=== PATIENT | female | born 1985 | race Caucasian/White ===

== ENCOUNTER 2018-10-12 08:33 | Emergency (ER) | payer BC, MEDICAID ==
[2018-10-12] MEDS ORDERED: cloNIDine 0.1 MG Tab PO SCH (08:45)
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
[2018-10-12 10:13] LABS: CHLORIDE,CL 104 mEq/L (98-106); SODIUM,NA 139 mEq/L (136-145)
[2018-10-12 10:35] VITALS: BP 135/80
== END 2018-10-12 11:12 | disposition home or self-care (01) ==
LOC: CC.ED 08:33
DX: I16.0 Hypertensive urgency (principal); I10 Essential (primary) hypertension; F17.210 Nicotine dependence, cigarettes, uncomplicated
CPT/HCPCS: 36415; 80053; 80305-QW; 84484; 85025; 85379; 86140; 93005; 99284-25; A9270-GY

== ENCOUNTER 2018-12-28 12:25 | Emergency (ER) | payer MEDICAID ==
[2018-12-28 12:40] VITALS: BP 136/84
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
== END 2018-12-28 13:25 | disposition home or self-care (01) ==
LOC: CC.ED 12:25
DX: G40.909 Epilepsy, unspecified, not intractable, without status epilepticus (principal); Z91.14 Patient's other noncompliance with medication regimen; F41.9 Anxiety disorder, unspecified; I10 Essential (primary) hypertension; F17.210 Nicotine dependence, cigarettes, uncomplicated; Z88.5 Allergy status to narcotic agent; Z79.899 Other long term (current) drug therapy; Z87.442 Personal history of urinary calculi
CPT/HCPCS: 99283

== ENCOUNTER 2019-11-21 10:49 | Emergency (ER) | payer MEDICAID ==
[2019-11-21 10:53] VITALS: BP 131/89; PULSE 99
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
== END 2019-11-21 11:37 | disposition left against medical advice (07) ==
LOC: CC.ED 10:49
DX: G40.909 Epilepsy, unspecified, not intractable, without status epilepticus (principal); F17.210 Nicotine dependence, cigarettes, uncomplicated; I10 Essential (primary) hypertension; Z91.14 Patient's other noncompliance with medication regimen; Z79.899 Other long term (current) drug therapy
CPT/HCPCS: 99284

== ENCOUNTER 2019-11-24 10:37 | Emergency (ER) | payer MEDICAID ==
[2019-11-24 11:09] VITALS: BP 131/94; PULSE 98
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
[2019-11-24 11:47] LABS: CHLORIDE,CL 108 mEq/L (98-106); SODIUM,NA 143 mEq/L (136-145)
== END 2019-11-24 13:10 | disposition home or self-care (01) ==
LOC: CC.ED 10:37
DX: R56.9 Unspecified convulsions (principal); I10 Essential (primary) hypertension; G43.909 Migraine, unspecified, not intractable, without status migrainosus; F41.9 Anxiety disorder, unspecified; F17.210 Nicotine dependence, cigarettes, uncomplicated; Z79.899 Other long term (current) drug therapy
CPT/HCPCS: 36415; 70450; 80053; 80305-QW; 81001; 81025; 85025; 99284-25

== ENCOUNTER 2020-01-02 08:23 | Emergency (ER) | payer MEDICAID ==
[2020-01-02 08:36] VITALS: BP 162/98; PULSE 135
== END 2020-01-02 08:41 | disposition left against medical advice (07) ==
LOC: CC.ED 08:23
DX: Z53.21 Procedure and treatment not carried out due to patient leaving prior to being seen by health care provider (principal)

== ENCOUNTER 2021-01-12 23:00 | Emergency (ER) | payer MEDICAID ==
[2021-01-12 23:10] VITALS: BP 153/78; PULSE 96
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
== END 2021-01-13 | disposition home or self-care (01) ==
LOC: CC.ED 23:00
DX: S61.412A Laceration without foreign body of left hand, initial encounter (principal); I10 Essential (primary) hypertension; Z79.899 Other long term (current) drug therapy; Z72.0 Tobacco use; W26.0XXA Contact with knife, initial encounter; Y92.009 Unspecified place in unspecified non-institutional (private) residence as the place of occurrence of the external cause
CPT/HCPCS: 12001; 99282-25

== ENCOUNTER 2021-06-06 11:51 | Emergency (ER) | payer BC, MEDICAID ==
[2021-06-06 13:09] VITALS: BP 141/105; PULSE 78
== END 2021-06-06 12:10 | disposition left against medical advice (07) ==
LOC: CC.ED 11:51
DX: R07.9 Chest pain, unspecified (principal); I10 Essential (primary) hypertension; Z79.899 Other long term (current) drug therapy; Z91.09 Other allergy status, other than to drugs and biological substances
CPT/HCPCS: 93005; 99284-25